=== PATIENT | male | born 1965 | race African-American/Black ===

== ENCOUNTER 2016-10-28 11:52 | Inpatient (IN) | payer BC ==
[2016-10-28 12:28] VITALS: BMI 27.8
--- NOTE | 2016-10-28 14:20 | HP ---
CIWA Score - CIWA Score Nausea/Vomitin Muscle Tremors: 3 Anxiety: 3 Agitation: 3 Paroxysmal Sweats: 2 Orientation: 0-Oriented Tacttile Disturbances: 2-Mild Itch/Numbness/Burn Auditory Disturbances: 2-Mild Harshness/Frighten Visual Disturbances: 2-Mild Sensitivity Headache: 2-Mild CIWA-Ar Total Score: 22 Admission ROS BHS - HPI Chief Complaint: i need help to stop drinking alcohol,cocaine and pcp Allergies/Adverse Reactions: Allergies Allergy/AdvReac Type Severity Reaction Status Date / Time No Known Allergies Allergy Verified 10/28/16 13:10 History of Present Illness: this 51 years old male with alcohol,cocaine dependence and pcp abused, withdrawal symptom,last detox in 2014 [facility] insomnia longest period of sobriety 5 years Exam Limitations: No Limitations - Ebola screening Have you traveled outside of the country in the last 21 days: No Have you been sick,other than usual withdrawal symptoms: No - Review of Systems Constitutional: Chills, Loss of Appetite, Malaise, Night Sweats, Changes in sleep, Unintentional Wgt. Loss EENT: reports: Tearing, Nose Congestion Respiratory: reports: No Symptoms reported Cardiac: reports: No Symptoms Reported GI: reports: Diarrhea, Nausea, Vomiting, Abdominal cramping : reports: No Symptoms Reported Musculoskeletal: reports: Back Pain, Muscle Pain Integumentary: reports: Dryness Neuro: reports: Headache, Tremors Endocrine: reports: No Symptoms Reported Hematology: reports: No Symptoms Reported Psychiatric: reports: No Sypmtoms Reported, Judgement Intact, Mood/Affect Appropiate, Orientated x3 (insomnia) Patient History - Patient Medical History Hx Anemia: No Hx Asthma: No Hx Chronic Obstructive Pulmonary Disease (COPD): No Hx Cancer: No Hx Cardiac Disorders: No Hx Congestive Heart Failure: No Hx Hypertension: No Hx Hypercholesterolemia: No Hx Pacemaker: No HX Cerebrovascular Accident: No Hx Seizures: No Hx Diabetes: No Hx Gastrointestinal Disorders: No Hx Genitourinary Disorders: No Hx Sexually Transmitted Disorders: No Hx Renal Disease (ESRD): No Hx Thyroid Disease: No Hx Human Immunodeficiency Virus (HIV): No (last 04/24 negative) Hx Hepatitis C: No Hx Depression: No Hx Suicide Attempt: No Hx Bipolar Disorder: No Hx Schizophrenia: No Other Medical History: in somnia,no suicidal,no homicidal - Patient Surgical History Past Surgical History: Yes Hx Orthopedic Surgery: Yes (right elbow fx sx in 1989) - PPD History Previous Implant?: Yes Documented Results: Positive w/o proof Implanted On Prior R Admission?: No PPD to be Administered?: No - Smoking Cessation Smoking history: Former smoker Have you smoked in the past 12 months: No If you are a former smoker, when did you quit?: 2011 Hx Chewing Tobacco Use: No Initiated information on smoking cessation: No - Substance & Tx. History Hx Alcohol Use: Yes Hx Substance Use: Yes Substance Use Type: Alcohol, Cocaine Hx Substance Use Treatment: Yes (2014 [facility]) - Substances Abused Alcohol Route: Oral Frequency: Daily Amount used: 5 32 oz beers Age of first use: 17 Date of Last Use: 10/27/16 Cocaine Route: Inhalation Frequency: Daily Amount used: 1 gram Age of first use: 17 Date of Last Use: 10/27/16 Marijuana/Hashish Route: Smoking Frequency: Daily Amount used: 5 bags Age of first use: 17 Date of Last Use: 10/27/16 PCP Route: Smoking Frequency: Daily Amount used: 5 bags Age of first use: 17 Date of Last Use: 10/27/16 Family Disease History - Family Disease History Family History: Denies Admission Physical Exam S - Vital Signs Vital Signs: Vital Signs - 24 hr 10/28/16 12:25 Temperature 96.4 F L Pulse Rate 74 Respiratory 18 Rate Blood Pressure 119/67 - Physical General Appearance: Yes: Moderate Distress, Tremorous, Irritable, Sweating, Anxious HEENTM: Yes: Normal ENT Inspection, RADHA, Nasal Congestion, Rhinorrhea Respiratory: Yes: Lungs Clear, Normal Breath Sounds, No Respiratory Distress Neck: Yes: Within Normal Limits Breast: Yes: Within Normal Limits Cardiology: Yes: Within Normal Limits, Regular Rhythm, Regular Rate, S1, S2 Abdominal: Yes: Normal Bowel Sounds, Non Tender, Flat, Soft Genitourinary: Yes: Within Normal Limits Back: Yes: Muscle Spasm Musculoskeletal: Yes: Back pain, Muscle Pain Extremities: Yes: Tremors 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, Fully Oriented, Alert, Motor Strength 5/5 Integumentary: Yes: Dry Lymphatic: Yes: Within Normal Limits - Diagnostic (1) Alcohol dependence with uncomplicated withdrawal Current Visit: Yes Status: Acute (2) Cocaine dependence Current Visit: Yes Status: Acute (3) Cannabis dependence Current Visit: Yes Status: Acute (4) PCP abuse Current Visit: Yes Status: Acute (5) Insomnia Current Visit: Yes Status: Acute (6) Weight loss Current Visit: Yes Status: Acute Cleared for Admission BHS - Detox or Rehab [facility] Level of Care: Medically Managed Detox Regimen/Protocol: Librium BHS Breath Alcohol Content Breath Alcohol Content: 0 Urine Drug Screen - Results Drug Screen Negative: No Urine Drug Screen Results: THC-Marijuana, ZENAIDA-Cocaine, PCP-Phencyclidine
[2016-10-28] MEDS ORDERED: IBUPROFEN 400 MG TABLET (FP) PO PRN (14:27)
[2016-10-28] MEDS ORDERED: LOPERAMIDE HCL 2 MG CAPSULE PO PRN (14:27)
[2016-10-28] MEDS ORDERED: MAGNESIUM CITRATE 300 ML BOTTLE PO PRN (14:27)
[2016-10-28] MEDS ORDERED: MAGNESIUM HYDROX 2400MG/30ML ORAL SUSPENSION 30 ML CUP PO PRN (14:27)
[2016-10-28] MEDS ORDERED: guaiFENesin/D-METHORPHAN HB 10 ML UNIT-DOSE CUPS PO PRN (14:27)
[2016-10-28] MEDS ORDERED: ACETAMINOPHEN 325 MG TABLET (FP) PO PRN (14:27)
[2016-10-28] MEDS ORDERED: hydrOXYzine PAMOATE 50 MG CAPSULE (FP) PO PRN (14:27)
[2016-10-28] MEDS ORDERED: P-EPHED 60MG/TRIPROLIDI 2.5MG TABLET PO PRN (14:27)
[2016-10-28] MEDS ORDERED: MENTHOL/PHENOL 1 EACH UD MM PRN (14:27)
[2016-10-28] MEDS ORDERED: MAG HYDROX/AL HYDROX/SIMETH 30 ML UNIT-DOSE CUP PO PRN (14:27)
[2016-10-28] MEDS ORDERED: chlordiazePOXIDE HCL 25 MG CAPSULE PO PRN (14:27)
[2016-10-28] MEDS ORDERED: chlordiazePOXIDE HCL 25 MG CAPSULE PO ONE (15:00)
[2016-10-28] MEDS: chlordiazePOXIDE HCL 25 MG CAPSULE PO SCH ×2 (17:25→22:06)
[2016-10-28 20:36] LABS: URINE APPEARANCE CLEAR; URINE BILIRUBIN NEGATIVE (NEGATIVE); URINE BLOOD NEGATIVE (NEGATIVE); URINE COLOR YELLOW; URINE GLUCOSE (UA) NEGATIVE (NEGATIVE); URINE KETONE NEGATIVE (NEGATIVE); URINE LEUK ESTERASE NEGATIVE (NEGATIVE); URINE NITRITE NEGATIVE (NEGATIVE); URINE PROTEIN NEGATIVE (NEGATIVE); URINE UROBILINOGEN NEGATIVE E.U./dl (0.2-1.0)
[2016-10-28] MEDS: THIAMINE HCL 100 MG TABLET (FP) PO SCH (22:06)
[2016-10-28] MEDS: diphenhydrAMINE HCL 50 MG CAPSULE PO PRN (22:07)
[2016-10-29] MEDS: chlordiazePOXIDE HCL 25 MG CAPSULE PO SCH ×4 (05:28→22:03)
[2016-10-29] MEDS ORDERED: PRENATAL VITAMINS W/ FOLIC ACID TABLET (FP) PO SCH (10:00)
[2016-10-29 10:13] LABS: MCH 28.5 pg (25.7-33.7); MCHC 32.4 g/dl (32.0-35.9); MEAN CELL VOLUME 87.8 fl (80-96); MEAN PLT VOLUME 9.9 fl (7.5-11.1); PLATELET COUNT 227 K/MM3 (134-434); RDW 13.7 % (11.9-15.9); WHITE BLOOD COUNT 6.2 K/mm3 (4.0-10.0)
--- NOTE | 2016-10-29 10:41 | PN ---
[facility] CIWA - CIWA Score Nausea/Vomitin-No Nausea/No Vomiting Muscle Tremors: 4-Moderate,w/Arms Extend Anxiety: 4-Mod. Anxious/Guarded Agitation: 3 Paroxysmal Sweats: 3 Orientation: 0-Oriented Tacttile Disturbances: 0-None Auditory Disturbances: 0-None Visual Disturbances: 0-None Headache: 0-None Present CIWA-Ar Total Score: 14 BHS Progress Note (SOAP) Subjective: Anxiety,tremors,sweating,interrupted sleep,restless Objective: 10/29/16 10:40 Vital Signs - 8 hr 10/29/16 10/29/16 10/29/16 03:16 06:25 09:41 Temperature 95.8 F L 96.0 F L Pulse Rate 64 54 L Respiratory 18 18 20 Rate Blood Pressure 123/84 128/82 Laboratory Tests 10/28/16 10/29/16 19:30 06:00 WBC 6.2 RBC 5.63 H Hgb 16.0 Hct 49.4 H MCV 87.8 MCHC 32.4 RDW 13.7 Plt Count 227 MPV 9.9 Urine Color Yellow Urine Appearance Clear Urine pH 5.0 Ur Specific [place] 1.028 Urine Protein Negative Urine Glucose (UA) Negative Urine Ketones Negative Urine Blood Negative Urine Nitrite Negative Urine Bilirubin Negative Urine Urobilinogen Negative Ur Leukocyte Esterase Negative labs noted Assessment: 10/29/16 10:40 Withdrawal sx. Plan: Continue detox
--- NOTE | 2016-10-29 10:44 | CONSULT ---
[facility] Psychiatric Consult - Data Date of interview: 10/29/16 Admission source: [facility] Identifying data: This is 51 years old male with no psychiatric hospita;ization history intoxicated with: Alcohol, PCP, Cannabis, Cocaine Substance Abuse History: Smoking history: Former smoker. Have you smoked in the past 12 months: No. If you are a former smoker, when did you quit?: 2011. Hx Chewing Tobacco Use: No. Initiated information on smoking cessation: No. - Substance & Tx. History. Hx Alcohol Use: Yes. Hx Substance Use: Yes. Substance Use Type: Alcohol, Cocaine. Hx Substance Use Treatment: Yes (2014 [facility]). - Substances Abused. Alcohol. Route: Oral. Frequency: Daily. Amount used: 5 32 oz beers. Age of first use: 17. Date of Last Use: 10/27/16. Cocaine. Route: Inhalation. Frequency: Daily. Amount used: 1 gram. Age of first use: 17. Date of Last Use: 10/27/16. Marijuana/Hashish. Route: Smoking. Frequency: Daily. Amount used: 5 bags. Age of first use: 17. Date of Last Use: 10/27/16. PCP. Route: Smoking. Frequency: Daily. Amount used : 5 bags. Age of first use: 17. Date of Last Use: 10/27/16 Medical History: Weight loss Psychiatric History: Denies Physical/Sexual Abuse/Trauma History: Denies Additional Comment: Obnservation. Detox Unit [facility] Protocol Mental Status Exam - Mental Status Exam Alert and Oriented to: Person Cognitive Function: Fair Patient Appearance: Unkempt Affect: Flat Patient Behavior: Sedated, Cooperative Speech Pattern: Delayed Voice Loudness: Mildly Soft/Quiet Thought Process: Goal Oriented Thought Disorder: Being Controlled Hallucinations: Denies Suicidal Ideation: Denies Homicidal Ideation: Denies Insight/Judgement: Fair Sleep: Difficulty falling asleep Appetite: Weight loss Muscle strength/Tone: Mild Hypotonicity Gait/Station: Shuffling Additional Comments: Obnservation. Detox [facility] Protocol Psychiatric Findings - Problem List ([place] 1, 2,3) (1) Alcohol dependence with uncomplicated withdrawal Current Visit: Yes Status: Acute (2) Cannabis dependence Current Visit: Yes Status: Acute (3) Cocaine dependence Current Visit: Yes Status: Acute (4) PCP abuse Current Visit: Yes Status: Acute (5) Drug-induced mood disorder Current Visit: Yes Status: Acute - Initial Treatment Plan Initial Treatment Plan: Obnservation. Detox [facility] Protocol
[2016-10-29 11:12] LABS: ALBUMIN 4.3 g/dl (3.4-5.0); ALK PHOS 73 U/L (45-117); ANION GAP 9 (8-16); BILIRUBIN,TOTAL 0.7 mg/dL (0.2-1.0); CALCIUM 9.5 mg/dL (8.5-10.1); CO2 27 mmol/L (21-32); CREATININE 1.2 mg/dL (0.7-1.3); GLUCOSE,RANDOM 103 mg/dL (74-106); SGOT/AST 13 U/L (15-37); SGPT/ALT 20 U/L (12-78); TOT PROT 7.7 g/dl (6.4-8.2)
--- NOTE | 2016-10-29 17:18 | EKG ---
Test Reason : Blood Pressure : / mmHG Vent. Rate : 072 BPM Atrial Rate : 072 BPM P-R Int : 150 ms QRS Dur : 090 ms QT Int : 364 ms P-R-T Axes : 071 042 027 degrees QTc Int : 398 ms NORMAL SINUS RHYTHM NONSPECIFIC T WAVE ABNORMALITY ABNORMAL ECG NO PREVIOUS ECGS AVAILABLE Confirmed by MAYELIN JOSHI, FREDY ([id number]) on 10/29/2016 5:17:43 PM Referred By: Confirmed By:FREDY DICK MD
[2016-10-29 22:00] VITALS: PULSE 74
[2016-10-29] MEDS: diphenhydrAMINE HCL 50 MG CAPSULE PO PRN (22:03)
[2016-10-29] MEDS: THIAMINE HCL 100 MG TABLET (FP) PO SCH (22:03)
[2016-10-30] MEDS: chlordiazePOXIDE HCL 25 MG CAPSULE PO SCH (05:10)
[2016-10-30 06:28] VITALS: BP 127/78; TEMP 95.7
--- NOTE | 2016-10-30 11:35 | DS ---
[facility] Detox Discharge Summary Admission Date: 10/28/16 Discharge Date: 10/30/16 - History Present History: Alcohol Dependence, Cannabis Dependence, Cocaine Dependence, Pcp Dependence Additional Comments: ADVISED PATIENT TO FOLLOW-UP WITH [facility] FOR GENERAL MEDICAL ASSESSMENT. Pertinent Past History: Insomnia. - Physical Exam Results Vital Signs: Vital Signs Temperature 95.7 F L 10/30/16 06:28 Pulse Rate 74 10/30/16 06:28 Respiratory Rate 18 10/30/16 06:28 Blood Pressure 127/78 10/30/16 06:28 O2 Sat by Pulse Oximetry (%) Pertinent Admission Physical Exam Findings: WITHDRAWAL SYMPTOMS. Laboratory Last Values WBC 6.2 K/mm3 (4.0-10.0) 10/29/16 06:00 RBC 5.63 M/mm3 (4.00-5.60) H 10/29/16 06:00 Hgb 16.0 GM/dL (11.7-16.9) 10/29/16 06:00 Hct 49.4 % (35.4-49) H 10/29/16 06:00 MCV 87.8 fl (80-96) 10/29/16 06:00 MCHC 32.4 g/dl (32.0-35.9) 10/29/16 06:00 RDW 13.7 % (11.9-15.9) 10/29/16 06:00 Plt Count 227 K/MM3 (134-434) 10/29/16 06:00 MPV 9.9 fl (7.5-11.1) 10/29/16 06:00 Sodium 141 mmol/L (136-145) 10/29/16 06:00 Potassium 4.2 mmol/L (3.5-5.1) 10/29/16 06:00 Chloride 105 mmol/L (98-107) 10/29/16 06:00 Carbon Dioxide 27 mmol/L (21-32) 10/29/16 06:00 Anion Gap 9 (8-16) 10/29/16 06:00 BUN 14 mg/dL (7-18) 10/29/16 06:00 Creatinine 1.2 mg/dL (0.7-1.3) 10/29/16 06:00 Creat Clearance w eGFR > 60 (>60) 10/29/16 06:00 Random Glucose 103 mg/dL (74-106) 10/29/16 06:00 Calcium 9.5 mg/dL (8.5-10.1) 10/29/16 06:00 Total Bilirubin 0.7 mg/dL (0.2-1.0) 10/29/16 06:00 AST 13 U/L (15-37) L 10/29/16 06:00 ALT 20 U/L (12-78) 10/29/16 06:00 Alkaline Phosphatase 73 U/L (45-117) 10/29/16 06:00 Total Protein 7.7 g/dl (6.4-8.2) 10/29/16 06:00 Albumin 4.3 g/dl (3.4-5.0) 10/29/16 06:00 Urine Color Yellow 10/28/16 19:30 Urine Appearance Clear 10/28/16 19:30 Urine pH 5.0 (5.0-8.0) 10/28/16 19:30 Ur Specific [place] 1.028 (1.001-1.035) 10/28/16 19:30 Urine Protein Negative (NEGATIVE) 10/28/16 19:30 Urine Glucose (UA) Negative (NEGATIVE) 10/28/16 19:30 Urine Ketones Negative (NEGATIVE) 10/28/16 19:30 Urine Blood Negative (NEGATIVE) 10/28/16 19:30 Urine Nitrite Negative (NEGATIVE) 10/28/16 19:30 Urine Bilirubin Negative (NEGATIVE) 10/28/16 19:30 Urine Urobilinogen Negative E.U./dl (0.2-1.0) 10/28/16 19:30 Ur Leukocyte Esterase Negative (NEGATIVE) 10/28/16 19:30 RPR Titer Nonreactive (NONREACTIVE) 10/29/16 06:00 LABS NOTED. - Treatment Hospital Course: Detoxed Safely - Medication Discharge Medications: Ambulatory Orders NK [No Known Home Medication] 10/28/16 - Diagnosis (1) Alcohol dependence with uncomplicated withdrawal Status: Acute (2) Cannabis dependence Status: Acute (3) Cocaine dependence Status: Acute Qualifiers: Substance use status: uncomplicated Qualified Code(s): F14.20 - Cocaine dependence, uncomplicated (4) Drug-induced mood disorder Status: Acute (5) Insomnia Status: Chronic Qualifiers: Insomnia type: unspecified Qualified Code(s): G47.00 - Insomnia, unspecified (6) PCP abuse Status: Acute (7) Weight loss Status: Acute - AMA Did Patient Leave Against Medical Advice: Yes (PATIENT HAD [facility] THAT HE HAD TO ATTEND TO.)
[2016-10-30] MEDS ORDERED: chlordiazePOXIDE 5 MG CAPSULE PO SCH (17:00)
[2016-10-31] MEDS ORDERED: chlordiazePOXIDE HCL 10 MG CAPSULE PO SCH (17:00)
== END 2016-10-30 09:49 | disposition left against medical advice (07) | DRG 770 ==
LOC: YASAS 11:52 → Y3N 14:28
PROVIDERS: ADMIT Internal Medicine Addiction Medicine; ATTEND Internal Medicine Addiction Medicine
PROC: HZ2ZZZZ Detoxification Services for Substance Abuse Treatment (ICD-10-PCS; principal; 2016-10-30)
DX: F10.230 Alcohol dependence with withdrawal, uncomplicated (principal); F14.20 Cocaine dependence, uncomplicated; F12.20 Cannabis dependence, uncomplicated; F16.10 Hallucinogen abuse, uncomplicated; F19.24 Other psychoactive substance dependence with psychoactive substance-induced mood disorder; R63.4 Abnormal weight loss; Z68.27 Body mass index [BMI] 27.0-27.9, adult
CPT/HCPCS: 36415; 71020-TC; 80053; 81003; 85027; 86593; 93005; 93010

== ENCOUNTER 2016-12-08 10:48 | Inpatient (IN) | payer BC ==
[2016-12-08 11:30] VITALS: BMI 27.1
--- NOTE | 2016-12-08 13:40 | HP ---
CIWA Score - CIWA Score Nausea/Vomitin-Int. Nausea w/Dry Heave Muscle Tremors: 3 Anxiety: 4-Mod. Anxious/Guarded Agitation: 3 Paroxysmal Sweats: 1-Minimal Palms Moist Orientation: 0-Oriented Tacttile Disturbances: 2-Mild Itch/Numbness/Burn Auditory Disturbances: 0-None Visual Disturbances: 0-None Headache: 2-Mild CIWA-Ar Total Score: 19 Admission ROS BHS - HPI Chief Complaint: DETOX TX FOR ALCOHOL DEPENDENCE. Allergies/Adverse Reactions: Allergies Allergy/AdvReac Type Severity Reaction Status Date / Time No Known Allergies Allergy Verified 12/08/16 12:14 History of Present Illness: 51 Y/O AA/MALE WITH A HX OF ALCOHOL,COCAINE, MARIJUANA AND PCP DEPENDENCE SEEKING DETOX [place] Exam Limitations: No Limitations - Ebola screening Have you traveled outside of the country in the last 21 days: No Have you had contact with anyone from an Ebola affected area: No Have you been sick,other than usual withdrawal symptoms: No Do you have a fever: No - Review of Systems Constitutional: Chills, Loss of Appetite, Night Sweats, Changes in sleep EENT: reports: Blurred Vision (WEARS GLAESSES), Dental Problems (PARTIAL DENTURES BILATERAL) Respiratory: reports: No Symptoms reported Cardiac: reports: Lightheadedness GI: reports: Diarrhea, Nausea, Poor Appetite, Poor Fluid Intake, Vomiting : reports: No Symptoms Reported Musculoskeletal: reports: No Symptoms Reported Integumentary: reports: Rash (FACIAL) Neuro: reports: Headache, Tremors, Unsteady Gait Endocrine: reports: No Symptoms Reported Hematology: reports: No Symptoms Reported Psychiatric: reports: Orientated x3, Anxious, Depressed Other Systems: Reviewed and Negative Patient History - Patient Medical History Hx Anemia: No Hx Asthma: No Hx Chronic Obstructive Pulmonary Disease (COPD): No Hx Cancer: No Hx Cardiac Disorders: No Hx Congestive Heart Failure: No Hx Hypertension: No Hx Hypercholesterolemia: No Hx Pacemaker: No HX Cerebrovascular Accident: No Hx Seizures: No Hx Diabetes: No Hx Gastrointestinal Disorders: No Hx Genitourinary Disorders: No Hx Sexually Transmitted Disorders: No Hx Renal Disease (ESRD): No Hx Thyroid Disease: No Hx Human Immunodeficiency Virus (HIV): No (last 04/24 negative HX) Hx Hepatitis C: No Hx Depression: Yes Hx Suicide Attempt: No (DENIES) Hx Bipolar Disorder: No Hx Schizophrenia: No - Patient Surgical History Past Surgical History: Yes Hx Neurologic Surgery: No Hx Cataract Extraction: No Hx Cardiac Surgery: No Hx Lung Surgery: No Hx Breast Surgery: No Hx Breast Biopsy: No Hx Abdominal Surgery: No Hx Appendectomy: No Hx Cholecystectomy: No Hx Genitourinary Surgery: No Hx Orthopedic Surgery: Yes (right elbow fx sx in 1989) Anesthesia Reaction: No - PPD History Previous Implant?: No (HX PPD+) Documented Results: Positive w/o proof Implanted On Prior R Admission?: No PPD to be Administered?: No - Reproductive History Patient is a Female of Child Bearing Age (11 -55 yrs old): No (MALE) - Smoking Cessation Smoking history: Current some day smoker Have you smoked in the past 12 months: Yes Aproximately how many cigarettes per day: 2 If you are a former smoker, when did you quit?: 2011 Hx Chewing Tobacco Use: No Initiated information on smoking cessation: Yes 'Breaking Loose' booklet given: 12/08/16 - Substance & Tx. History Hx Alcohol Use: Yes (BEER) Hx Substance Use: Yes (COCAINE,MARIJUANA,PCP) - Substances Abused Cocaine Route: Injection Frequency: Daily Amount used: $150 Age of first use: 17 Date of Last Use: 12/07/16 PCP Route: Smoking Frequency: Daily Amount used: $10 Age of first use: 17 Date of Last Use: 12/04/16 Alcohol-beer Route: Oral Frequency: Daily Amount used: 1-6 pk. Age of first use: 17 Date of Last Use: 12/08/16 Marijuana Route: Smoking Frequency: Daily Amount used: $5 Age of first use: 13 Date of Last Use: 12/07/16 Family Disease History - Family Disease History Family History: Denies Admission Physical Exam S - Vital Signs Vital Signs: Vital Signs - 24 hr 12/08/16 11:27 Temperature 96.4 F L Pulse Rate 61 Respiratory 18 Rate Blood Pressure 103/71 - Physical General Appearance: Yes: Moderate Distress, Irritable, Anxious HEENTM: Yes: EOMI, Normocephalic, RADHA, Pharynx Normal Respiratory: Yes: Chest Non-Tender, Lungs Clear, Normal Breath Sounds, No Respiratory Distress Neck: Yes: Supple, Trachea in good position Breast: Yes: Breast Exam Deferred Cardiology: Yes: Regular Rhythm, Regular Rate, S1, S2 Abdominal: Yes: Normal Bowel Sounds, Non Tender, Soft Genitourinary: Yes: Other (N/C) Back: Yes: Within Normal Limits Musculoskeletal: Yes: full range of Motion, Gait Steady Extremities: Yes: Normal Range of Motion, Non-Tender 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 - Detox or Rehab [facility] Level of Care: Medically Managed Detox Regimen/Protocol: Librium [facility] Breath Alcohol Content Breath Alcohol Content: 0 Urine Drug Screen - Results Drug Screen Negative: No Urine Drug Screen Results: THC-Marijuana, ZENAIDA-Cocaine, PCP-Phencyclidine
[2016-12-08] MEDS ORDERED: MAGNESIUM CITRATE 300 ML BOTTLE PO PRN (13:45)
[2016-12-08] MEDS ORDERED: hydrOXYzine PAMOATE 25 MG CAPSULE (FP) PO PRN (13:45)
[2016-12-08] MEDS ORDERED: LOPERAMIDE HCL 2 MG CAPSULE PO PRN (13:45)
[2016-12-08] MEDS ORDERED: IBUPROFEN 400 MG TABLET (FP) PO PRN (13:45)
[2016-12-08] MEDS ORDERED: guaiFENesin/D-METHORPHAN HB 10 ML UNIT-DOSE CUPS PO PRN (13:45)
[2016-12-08] MEDS ORDERED: MENTHOL/PHENOL 1 EACH UD MM PRN (13:45)
[2016-12-08] MEDS ORDERED: MAG HYDROX/AL HYDROX/SIMETH 30 ML UNIT-DOSE CUP PO PRN (13:45)
[2016-12-08] MEDS ORDERED: MAGNESIUM HYDROX 2400MG/30ML ORAL SUSPENSION 30 ML CUP PO PRN (13:45)
[2016-12-08] MEDS ORDERED: chlordiazePOXIDE HCL 25 MG CAPSULE PO PRN (13:45)
[2016-12-08] MEDS ORDERED: NICOTINE POLACRILEX 2 MG GUM BUC PRN (13:45)
[2016-12-08] MEDS ORDERED: P-EPHED 60MG/TRIPROLIDI 2.5MG TABLET PO PRN (13:45)
[2016-12-08] MEDS ORDERED: ACETAMINOPHEN 325 MG TABLET (FP) PO PRN (13:45)
[2016-12-08] MEDS ORDERED: chlordiazePOXIDE HCL 25 MG CAPSULE PO ONE (14:05)
[2016-12-08] MEDS: NICOTINE 14 MG/24 HOURS TOPICAL PATCH TD SCH (14:31)
[2016-12-08] MEDS: chlordiazePOXIDE HCL 25 MG CAPSULE PO SCH ×2 (17:51→22:48)
[2016-12-08] MEDS: THIAMINE HCL 100 MG TABLET (FP) PO SCH (22:47)
[2016-12-08] MEDS: diphenhydrAMINE HCL 50 MG CAPSULE PO PRN (22:48)
--- NOTE | 2016-12-08 23:02 | EKG ---
Test Reason : Blood Pressure : / mmHG Vent. Rate : 053 BPM Atrial Rate : 053 BPM P-R Int : 156 ms QRS Dur : 100 ms QT Int : 418 ms P-R-T Axes : 073 030 018 degrees QTc Int : 392 ms SINUS BRADYCARDIA NONSPECIFIC ST ABNORMALITY ABNORMAL ECG WHEN COMPARED WITH ECG OF 28-OCT-2016 15:48, T WAVE VARIATION Confirmed by FARA RICO MD ([id number]) on 12/08/2016 11:01:43 PM Referred By: Confirmed By:FARA RICO MD
[2016-12-09] MEDS: chlordiazePOXIDE HCL 25 MG CAPSULE PO SCH ×4 (05:14→22:54)
[2016-12-09] MEDS: PRENATAL VITAMINS W/ FOLIC ACID TABLET (FP) PO SCH (10:09)
[2016-12-09] MEDS: TOPIRAMATE 25 MG TABLET (FP) PO SCH (10:10)
[2016-12-09] MEDS: NICOTINE 14 MG/24 HOURS TOPICAL PATCH TD SCH (10:10)
--- NOTE | 2016-12-09 10:36 | CONSULT ---
[facility] Psychiatric Consult - Data Date of interview: 12/09/16 Admission source: [facility] Identifying data: This is 51 years old male with psychiatric hospitalization history intoxicated with Alcohol, Cocaine, PCP, Cannabis Substance Abuse History: Smoking history: Current some day smoker. Have you smoked in the past 12 months: Yes. Aproximately how many cigarettes per day: 2. If you are a former smoker, when did you quit?: 2011. Hx Chewing Tobacco Use: No. Initiated information on smoking cessation: Yes. 'Breaking Loose' booklet given: 12/08/16. - Substance & Tx. History. Hx Alcohol Use: Yes (BEER) . Hx Substance Use: Yes (COCAINE,MARIJUANA,PCP). - Substances Abused. Cocaine. Route: Injection. Frequency: Daily. Amount used: $150. Age of first use: 17. Date of Last Use: 12/07/16. PCP. Route: Smoking. Frequency : Daily. Amount used: $10. Age of first use: 17. Date of Last Use: 12/04/16. Alcohol-beer. Route: Oral. Frequency: Daily. Amount used: 1-6 pk. Age of first use: 17. Date of Last Use: 12/08/16. Marijuana. Route: Smoking. Frequency: Daily. Amount used: $5. Age of first use: 13. Date of Last Use: Medical History: Weight loss history Psychiatric History: Patient reports history of depression and anxiety with mostb recent psychiatric admission on 2012 [facility] for safety, reports currently taking: Topamax 50mg poqd. Elavil 50mg po qhs Physical/Sexual Abuse/Trauma History: Denies Additional Comment: Topamax 50mg poqd. Elavil 50mg po qhs Mental Status Exam - Mental Status Exam Alert and Oriented to: Person Cognitive Function: Fair Patient Appearance: Unkempt Mood: Sad Affect: Mood Congruent Patient Behavior: Cooperative Speech Pattern: Appropriate Voice Loudness: Mildly Soft/Quiet Thought Process: Circumstantial Thought Disorder: Being Controlled Hallucinations: Denies Suicidal Ideation: Denies Homicidal Ideation: Denies Insight/Judgement: Fair Sleep: Difficulty falling asleep Appetite: Weight loss Muscle strength/Tone: Normal Gait/Station: Shuffling Additional Comments: Topamax 50mg poqd. Elavil 50mg po qhs Psychiatric Findings - Problem List ([place] 1, 2,3) (1) Alcohol dependence with uncomplicated withdrawal Current Visit: Yes Status: Acute (2) Cannabis dependence, uncomplicated Current Visit: Yes Status: Acute (3) Cocaine dependence Current Visit: Yes Status: Acute Qualifiers: Substance use status: uncomplicated Qualified Code(s): F14.20 - Cocaine dependence, uncomplicated (4) PCP abuse Current Visit: Yes Status: Acute (5) Drug-induced mood disorder Current Visit: No Status: Acute - Initial Treatment Plan Initial Treatment Plan: Topamax 50mg poqd. Elavil 50mg po qhs
--- NOTE | 2016-12-09 10:39 | PN ---
S CIWA - CIWA Score Nausea/Vomitin-No Nausea/No Vomiting Muscle Tremors: 4-Moderate,w/Arms Extend Anxiety: 3 Agitation: 4-Moderately Restless Paroxysmal Sweats: 3 Orientation: 0-Oriented Tacttile Disturbances: 0-None Auditory Disturbances: 0-None Visual Disturbances: 0-None Headache: 1-Very Mild CIWA-Ar Total Score: 15 BHS Progress Note (SOAP) Subjective: dry/flaky skin sweats mild shakes interrupted sleep agitation Objective: 12/09/16 10:36 Vital Signs Temperature 97.3 F L 12/09/16 09:52 Pulse Rate 66 12/09/16 09:52 Respiratory Rate 20 12/09/16 09:52 Blood Pressure 130/60 12/09/16 09:52 O2 Sat by Pulse Oximetry (%) labs pending awake/alert ambulating no acute distress Assessment: 12/09/16 10:37 withdrawal sx Plan: continue detox increase fluids labs pending lac hydrin lotion hydrocortizone oint for extreme dry/flaky area
[2016-12-09 10:44] LABS: MCH 28.1 pg (25.7-33.7); MCHC 33.3 g/dl (32.0-35.9); MEAN CELL VOLUME 84.5 fl (80-96); MEAN PLT VOLUME 9.6 fl (7.5-11.1); PLATELET COUNT 175 K/MM3 (134-434); RDW 13.7 % (11.9-15.9)
[2016-12-09 11:08] LABS: ALBUMIN 3.8 g/dl (3.4-5.0); ALK PHOS 64 U/L (45-117); ANION GAP 10 (8-16); BILIRUBIN,TOTAL 0.9 mg/dL (0.2-1.0); CALCIUM 9.1 mg/dL (8.5-10.1); CO2 27 mmol/L (21-32); COCKROFT - GAULT 103.16; GLUCOSE,RANDOM 100 mg/dL (74-106); SGOT/AST 20 U/L (15-37); SGPT/ALT 23 U/L (12-78); TOT PROT 6.4 g/dl (6.4-8.2)
[2016-12-09] MEDS: HYDROCORTISONE 1% TOPICAL LOTION 118 ML BOTTLE TP PRN (14:54)
[2016-12-09] MEDS: AMMONIUM LACTATE 12% LOTION 225 GM BOTTLE TP PRN (14:54)
[2016-12-09] MEDS: THIAMINE HCL 100 MG TABLET (FP) PO SCH (22:53)
[2016-12-09] MEDS: diphenhydrAMINE HCL 50 MG CAPSULE PO PRN (22:54)
[2016-12-09] MEDS: AMITRIPTYLINE HCL 25 MG TABLET (FP) PO SCH (22:54)
[2016-12-10] MEDS: chlordiazePOXIDE HCL 25 MG CAPSULE PO SCH ×2 (05:23→10:15)
[2016-12-10] MEDS: NICOTINE 14 MG/24 HOURS TOPICAL PATCH TD SCH (10:15)
[2016-12-10] MEDS: PRENATAL VITAMINS W/ FOLIC ACID TABLET (FP) PO SCH (10:15)
[2016-12-10] MEDS: TOPIRAMATE 25 MG TABLET (FP) PO SCH (10:15)
[2016-12-10] MEDS: AMMONIUM LACTATE 12% LOTION 225 GM BOTTLE TP PRN (10:16)
[2016-12-10] MEDS: HYDROCORTISONE 1% TOPICAL LOTION 118 ML BOTTLE TP PRN (10:16)
--- NOTE | 2016-12-10 11:19 | PN ---
S CIWA - CIWA Score Nausea/Vomitin Muscle Tremors: 2 Anxiety: 3 Agitation: 2 Paroxysmal Sweats: 3 Orientation: 0-Oriented Tacttile Disturbances: 0-None Auditory Disturbances: 0-None Visual Disturbances: 0-None Headache: 0-None Present CIWA-Ar Total Score: 12 BHS Progress Note (SOAP) Subjective: interrupted sleep, sweats, dizzy Objective: 12/10/16 11:17 Vital Signs Temperature 98.1 F 12/10/16 09:37 Pulse Rate 65 12/10/16 09:37 Respiratory Rate 16 12/10/16 09:37 Blood Pressure 113/76 12/10/16 09:37 O2 Sat by Pulse Oximetry (%) Laboratory Tests 12/09/16 12/09/16 12/09/16 06:00 06:00 06:00 WBC 6.0 RBC 4.81 Hgb 13.5 D Hct 40.7 D MCV 84.5 MCHC 33.3 RDW 13.7 Plt Count 175 D MPV 9.6 Sodium 138 Potassium 3.9 Chloride 101 Carbon Dioxide 27 Anion Gap 10 BUN 9 D Creatinine 1.0 Creat Clearance w eGFR > 60 Random Glucose 100 Calcium 9.1 Total Bilirubin 0.9 D AST 20 D ALT 23 Alkaline Phosphatase 64 Total Protein 6.4 Albumin 3.8 RPR Titer Nonreactive pt aox3 lying in bed Assessment: 12/10/16 11:18 withdrawal sx's Plan: cont. detox increase fluids
[2016-12-10] MEDS: chlordiazePOXIDE 5 MG CAPSULE PO SCH ×2 (17:33→22:42)
[2016-12-10] MEDS: AMITRIPTYLINE HCL 25 MG TABLET (FP) PO SCH (22:42)
[2016-12-10] MEDS: diphenhydrAMINE HCL 50 MG CAPSULE PO PRN (22:42)
[2016-12-10] MEDS: THIAMINE HCL 100 MG TABLET (FP) PO SCH (22:42)
[2016-12-11] MEDS: chlordiazePOXIDE 5 MG CAPSULE PO SCH ×2 (05:16→10:29)
[2016-12-11] MEDS: PRENATAL VITAMINS W/ FOLIC ACID TABLET (FP) PO SCH (10:27)
[2016-12-11] MEDS: TOPIRAMATE 25 MG TABLET (FP) PO SCH (10:27)
[2016-12-11] MEDS: NICOTINE 14 MG/24 HOURS TOPICAL PATCH TD SCH (10:28)
[2016-12-11 10:48] VITALS: BP 120/71; PULSE 75; TEMP 95.5
--- NOTE | 2016-12-11 11:07 | DS ---
[facility] Detox Discharge Summary Admission Date: 12/08/16 Discharge Date: 12/11/16 - History Present History: Alcohol Dependence, Cannabis Dependence, Cocaine Dependence, Pcp Dependence - Physical Exam Results Vital Signs: Vital Signs Temperature 95.5 F L 12/11/16 10:47 Pulse Rate 75 12/11/16 10:47 Respiratory Rate 18 12/11/16 10:47 Blood Pressure 120/71 12/11/16 10:47 O2 Sat by Pulse Oximetry (%) - Treatment Hospital Course: Detox Protocol Followed, Detoxed Safely, Responded well, Discharged Condition Good, Rehab Referral Accepted - Medication Discharge Medications: Ambulatory Orders Amitriptyline HCl [Elavil -] 50 mg PO HS #30 tablet 12/09/16 Topiramate [Topamax -] 50 mg PO DAILY #30 tablet 12/09/16 - Diagnosis (1) Alcohol dependence with uncomplicated withdrawal Current Visit: Yes Status: Chronic (2) Cannabis dependence, uncomplicated Current Visit: Yes Status: Chronic (3) Cocaine dependence Current Visit: Yes Status: Chronic Qualifiers: Substance use status: uncomplicated Qualified Code(s): F14.20 - Cocaine dependence, uncomplicated (4) PCP abuse Current Visit: Yes Status: Chronic (5) Drug-induced mood disorder Current Visit: Yes Status: Chronic (6) Weight loss Current Visit: Yes Status: Chronic (7) Insomnia Current Visit: No Status: Chronic Qualifiers: Insomnia type: primary Qualified Code(s): F51.01 - Primary insomnia - AMA Did Patient Leave Against Medical Advice: No ([facility]
[2016-12-11] MEDS ORDERED: chlordiazePOXIDE HCL 10 MG CAPSULE PO SCH (17:00)
== END 2016-12-11 11:13 | disposition home or self-care (01) | DRG 774 ==
LOC: YASAS 10:48 → Y6N 13:02
PROVIDERS: ADMIT Internal Medicine Addiction Medicine; ATTEND Internal Medicine Addiction Medicine
PROC: HZ2ZZZZ Detoxification Services for Substance Abuse Treatment (ICD-10-PCS; principal; 2016-12-11)
DX: F10.230 Alcohol dependence with withdrawal, uncomplicated (principal); F14.20 Cocaine dependence, uncomplicated; F12.20 Cannabis dependence, uncomplicated; F16.10 Hallucinogen abuse, uncomplicated; F51.01 Primary insomnia; F19.24 Other psychoactive substance dependence with psychoactive substance-induced mood disorder; R63.4 Abnormal weight loss; Z68.27 Body mass index [BMI] 27.0-27.9, adult; Z59.0 Homelessness
CPT/HCPCS: 36415; 80053; 81003; 85027; 86593; 93005; 93010